=== PATIENT | female | born 1985 | race Caucasian/White ===

== ENCOUNTER 2017-08-28 16:45 | Emergency (ER) | payer MEDICAID ==
[2017-08-28] MEDS ORDERED: Cephalexin CAP* 500 MG PO ONE (18:08)
--- NOTE | 2017-08-28 18:25 | ED ---
Tatiana Lundberg Tenzin, scribed for Raymond Rivera MD on 08/28/17 at 1739 . Allergic Reaction/Systemic - HPI Summary HPI Summary: Pt is a 31 years old female presenting to the ED complaining of rashes like blisters on her face with swelling on her face and glands that got worse since this morning. Pt rates the pain at 6/10 in severity. Pt is also complaining of experiencing mild jerks and pain on the end two fingers in her right hand. She notes that the rashes started on her lips few days ago. She reports that she is a recent inpatient at [facility] and she has been there for a week and half ago for opoid. She is allergic to Sulfoamide. Pt also notes that she has recently been started on Zoloft but today she didn't take it. - History of Current Complaint Chief Complaint: EDAllergicReaction Time Seen by Provider: 08/28/17 17:24 Hx Obtained From: Patient Onset/Duration: Started days ago - few days ago., Still Present Severity Currently: Moderate Pain Intensity: 6 Pain Scale Used: 0-10 Numeric Character: Swelling Aggravating Factor(s): Nothing Alleviating Factor(s): Nothing - Allergies/Home Medications Allergies/Adverse Reactions: Allergies Allergy/AdvReac Type Severity Reaction Status Date / Time Sulfa (Sulfonamide Allergy Hives Verified 08/28/17 16:51 Antibiotics) PMH/Surg Hx/FS Hx/Imm Hx Sensory History: Denies: Hx Deafness Opthamlomology History: Denies: Hx Legally Blind Infectious Disease History: No Infectious Disease History: Denies: Traveled Outside the [place] in Last 30 Days - Family History Known Family History: Positive: Other - Pt denies any relevant family history. Review of Systems Positive: Other - skin rashes Positive: Edema - in her glands and face. All Other Systems Reviewed And Are Negative: Yes Physical Exam - Summary Physical Exam Summary: Appearance: The patient is well-nourished in no acute distress and in no acute pain. Skin: Pt has discrete erythematous lesion where some are crusty, some folliculitis on the right cheek and mild swelling on the left jaw line. HEENT: The head is normocephalic and atraumatic. The pupils are equal and reactive. The conjunctivae are clear and without drainage. Nares are patent and without drainage. Mouth reveals moist mucous membranes and the throat is without erythema and exudate. The external ears are intact. The ear canals are patent and without drainage. The tympanic membranes are intact. Neck: the neck is supple with full range of motion and non-tender. There are no carotid bruits. There is no neck vein distension. Respiratory: Chest is non-tender. Lungs are clear to auscultation and breath sounds are symmetrical and equal. Cardiovascular: Heart is regular rate and rhythm. There is no murmur or rub auscultated. There is no peripheral edema and pulses are symmetrical and equal. Abdomen: The abdomen is soft and non-tender. There are normal bowel sounds heard in all four quadrants and there is no organomegaly palpated. Musculoskeletal: There is no back tenderness noted. Extremities are non-tender with full range of motion. There is good capillary refill. There is no peripheral edema or calf tenderness elicited. Neurological: Patient is alert and oriented to person, place and time. The patient has symmetrical motor strength in all four extremities. Cranial nerves are grossly intact. Deep tendon reflexes are symmetrical and equal in all four extremities. Pt also has a mild chronic jerks. Psychiatric: The patient has an appropriate affect and does not exhibit any anxiety or depression. Triage Information Reviewed: Yes Vital Signs On Initial Exam: Initial Vitals Temp Pulse Resp BP Pulse Ox 97.8 F 83 14 100/62 97 08/28/17 16:46 08/28/17 16:46 08/28/17 16:46 08/28/17 16:46 08/28/17 16:46 Vital Signs Reviewed: Yes Diagnostics - Vital Signs Vital Signs Temp Pulse Resp BP Pulse Ox 08/28/17 16:46 97.8 F 83 14 100/62 97 - Laboratory Lab Statement: Any lab studies that have been ordered have been reviewed, and results considered in the medical decision making process. Allergic Reaction Course/Dx - Course Course Of Treatment: Ms. Arellano presented to the emergency department with a one- day history of facial lesions. About a day and a half ago she noticed a painful lesion on her right upper vermilion border. Subsequently she has developed painful erythematous lesions diffusely on her face and some mild facial swelling on the left. On exam she has honey crusted lesions on her face and no lymphadenopathy. This looks like impetigo to me and I will treat it accordingly. She is at [facility] as an inpatient for about the last 10 days and has had her opiates stopped and then started on Suboxone. She is also been started on several other medications including Lamictal. For the last week or so she's had some jerkiness which looks like mild myoclonic activity to me. I don't think this is related to her current problem and refer her back to [facility] physician. - Diagnoses Provider Diagnoses: Impetigo Discharge - Sign-Out/Discharge Documenting (check all that apply): Discharge/Admit/Transfer - Discharge - Discharge Plan Condition: Stable Disposition: HOME Prescriptions: Cephalexin CAP* [Keflex CAP*] 500 mg PO QID #20 cap Mupirocin 2% OINT* [Bactroban 2 % Oint*] 1 applic TOPICAL TID 5 Days #1 tube Patient Education Materials: Impetigo (ED) Referrals: [facility] [Outside] - 3 Days Additional Instructions: Follow up with your [facility] physician in three days. Return to the emergency department for any new or worsening symptoms. - Billing Disposition and Condition Condition: STABLE Disposition: Home The documentation as recorded by the Tatiana posey Tenzin accurately reflects the service I personally performed and the decisions made by me, Raymond Rivera MD.
[2017-08-28 19:24] VITALS: BP 109/68
[2017-08-28] MEDS ORDERED: Mupirocin 2% OINT* TUBE TOPICAL SCH (21:00)
== END 2017-08-28 18:39 | disposition home or self-care (01) ==
LOC: ED 16:45
DX: L01.00 Impetigo, unspecified (principal); Z88.2 Allergy status to sulfonamides
CPT/HCPCS: 99282; A9270-GY

== ENCOUNTER 2017-11-05 10:02 | Emergency (ER) | payer MEDICAID ==
[2017-11-05] MEDS ORDERED: NS 0.9% 1000 ML* 1,000 ML IV ONE (10:29)
--- NOTE | 2017-11-05 10:51 | ED ---
Abdominal Pain/Female - HPI Summary HPI Summary: A 31 y/o female presents to ED c/o constipation and abdominal pain reaching 3/ 10 in severity. As per triage, "pt reports today from [facility] she has not had a bowel movement in 2 weeks. Has been taking PO medications to assist with bowels but not having any success. Pt hx of bulemia and states has been keeping meals down recently. Pt states she is passing some gas. BS in triage are hypoactive". According to the patient, she has not been able to go to the bathroom for the past two-weeks, however, for the past couple days she has been able to pass a very small amount. She noted that she has been taking stool softeners, prune juice, glycerine, along with other remedies to allow her to have a bowel movement, however, nothing has helped. Additionally, she c/o abdominal pain and feels like she put on 7 lbs. Patient has nausea and some vomiting. PMHx of bulimia, opioid addict (previous), mental health disorders, denies appendectomy. She has been clean for the past 4 months with no smoking. Patient noted that staff cannot obtain blood without US. - History of Current Complaint Chief Complaint: EDAbdPain Stated Complaint: CONSTIPATION Time Seen by Provider: 11/05/17 10:14 Hx Obtained From: Patient Onset/Duration: Sudden Onset, Lasting Weeks - 2 weeks., Still Present Timing: Constant Severity Initially: Mild Severity Currently: Mild Pain Intensity: 3 Pain Scale Used: 0-10 Numeric Location: Discrete At: LLQ Radiates: No Aggravating Factor(s): Nothing Alleviating Factor(s): Nothing Associated Signs and Symptoms: Positive: Constipation, Nausea, Vomiting. Negative: Fever Allergies/Adverse Reactions: Allergies Allergy/AdvReac Type Severity Reaction Status Date / Time Sulfa (Sulfonamide Allergy Hives Verified 11/05/17 10:08 Antibiotics) Home Medications: Home Medications Abilify 10 mg pe PO BID 11/05/17 [History Confirmed 11/05/17] Benadryl Allergy 50 mg PO DAILY 11/05/17 [History Confirmed 11/05/17] Haldol TAB* 2 mg PO DAILY 11/05/17 [History Confirmed 11/05/17] Hydroxyzine HCl 50 mg PO DAILY 11/05/17 [History Confirmed 11/05/17] Melatonin 10 mg PO DAILY 11/05/17 [History Confirmed 11/05/17] Seroquel 200 MG 200 mg pe PO DAILY 11/05/17 [History Confirmed 11/05/17] Vitamin B Complex 1 tab PO DAILY 11/05/17 [History Confirmed 11/05/17] cloNIDine TAB* 0.1 mg PO QID PRN 11/05/17 [History Confirmed 11/05/17] PMH/Surg Hx/FS Hx/Imm Hx Endocrine/Hematology History: Denies: Hx Diabetes Cardiovascular History: Denies: Hx Hypertension Sensory History: Denies: Hx Legally Blind, Hx Deafness Opthamlomology History: Denies: Hx Legally Blind Neurological History: Reports: Other Neuro Impairments/Disorders - 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 - Surgical History Surgery Procedure, Year, and Place: 2 caesarean section, tubal ligation. Infectious Disease History: No Infectious Disease History: Denies: Traveled Outside the [place] in Last 30 Days - Family History Known Family History: Positive: Other - Ovarian and cervical cancer. Negative: Hypertension, Diabetes - Social History Alcohol Use: None Substance Use Type: Reports: None Substance Use Comment - Amount & Last Used: former opiates and benzo use, cocaine, MDMA Smoking Status (MU): Former Smoker Review of Systems Negative: Fever Positive: Abdominal Pain, Vomiting, Nausea, Other - POSITIVE: Constipation. All Other Systems Reviewed And Are Negative: Yes Physical Exam - Summary Physical Exam Summary: Appearance: Well appearing, no pain distress Skin: warm, dry, reflects adequate perfusion Head/face: normal Eyes: EOMI, JEFF ENT: normal Neck: supple, non-tender Respiratory: CTA, breath sounds present Cardiovascular: RRR, pulses symmetrical Abdomen: soft, LLQ tenderness Bowel: present Musculoskeletal: normal, strength/ROM intact Neuro: normal, sensory motor intact, A&Ox3 Triage Information Reviewed: Yes Vital Signs On Initial Exam: Initial Vitals Temp Pulse Resp BP Pulse Ox 98.3 F 93 16 114/64 98 11/05/17 10:08 11/05/17 10:08 11/05/17 10:08 11/05/17 10:08 11/05/17 10:08 Vital Signs Reviewed: Yes Diagnostics - Vital Signs Vital Signs Temp Pulse Resp BP Pulse Ox 11/05/17 10:08 98.3 F 93 16 114/64 98 - Laboratory Result Diagrams: 11/05/17 11:35 11/05/17 11:35 Lab Statement: Any lab studies that have been ordered have been reviewed, and results considered in the medical decision making process. - CT CT A/P CT Interpretation Completed By: Radiologist - 1. No CT evidence of pathologic bowel obstruction or acute inflammatory change. 2. A large amount of stool is incidentally noted throughout the length of the not pathologically dilated colon. Please correlate to signs or symptoms of constipation. ED PHYSCIAIN REVIEWED THIS RADIOLOGY REPORT. Re-Evaluation - Re-Evaluation First Eval Re-Evaluation Time: 14:38 Comment: Discussed plan and discharge with patient. Abdominal Pain Fem Course/Dx - Course Course Of Treatment: A 31 y/o female presents to ED c/o constipation and abdominal pain reaching 3/10 in severity. According to the patient, she has not been able to go to the bathroom for the past two-weeks, however, for the past couple days she has been able to pass a very small amount. A CT A/P revealed 1. No CT evidence of pathologic bowel obstruction or acute inflammatory change. 2. A large amount of stool is incidentally noted throughout the length of the not pathologically dilated colon. Please correlate to signs or symptoms of constipation. Blood work and UA was done and all within normal limits. In the ED course, the patient recieved Zofran, Omnipaque and IV fluids. Patient will be discharged with a diagnosis of constipation. Patient will be sent home with prescription to Sodium Phosphate Enema. Patient is to follow up with PCP in 3 days. Patient is agreeable with this plan. - Diagnoses Differential Diagnosis: Positive: Constipation, Diverticulitis, Ovarian Cyst Provider Diagnoses: Constipation Discharge - Sign-Out/Discharge Documenting (check all that apply): Patient Departure - DISCHARGE - Discharge Plan Condition: Stable Disposition: HOME Prescriptions: Sodium Phosphate ADULT ENEMA* [Fleet Enema*] 1 enema AK DAILY PRN #[id number] PRN Reason: Constipation Patient Education Materials: Constipation (ED), Acute Nausea and Vomiting (ED) , Abdominal Pain (ED) Referrals: Saundra Parker MD [Primary Care Provider] - 3 Days Additional Instructions: FOLLOW UP WITH PRIMARY CARE IN 3 DAYS. TAKE MEDICATION PRESCRIBED. RETURN TO ED FOR ANY NEW OR WORSENING SYMPTOMS. - Billing Disposition and Condition Condition: STABLE Disposition: Home - Attestation Statements Document Initiated by Moiz: Yes Documenting Scribe: Alber Juárez Provider For Whom Moiz is Documenting (Include Credential): Viet Gil MD Scribe Attestation: Alber Lundberg, scribed for Viet Gil MD on 11/05/17 at 1507. Scribe Documentation Reviewed: Yes Provider Attestation: The documentation as recorded by the Alber posey accurately reflects the service I personally performed and the decisions made by , Viet Gil MD
[2017-11-05] MEDS ORDERED: Ondansetron INJ* 2 MG/ML VIAL IV ONE ×2 (11:42→12:40)
[2017-11-05 11:43] LABS: ABS Basophils 0.1 10^3/ul (0-0.2); ABS Eosinophils 0.3 10^3/ul (0-0.6); ABS Lymphocytes 2.4 10^3/ul (1.0-4.8); ABS Monocytes 0.4 10^3/ul (0-0.8); ABS Neutrophils 2.2 10^3/ul (1.5-7.7); ABS Nucleated RBC 0 10^3/ul; Hematocrit 34 % (35-47); Hemoglobin 11.4 g/dl (12.0-16.0); Lymphocyte % 44.7 % (25-47); Mean Corpuscular HGB Conc 33 g/dl (31-36); Mean Corpuscular Hemoglobin 29 pg (27-31); Mean Corpuscular Volume 88 fL (80-97); Mean Platelet Volume 7.4 um3 (7.4-10.4); Nucleated Red Blood Cells % 0.1; Platelet Count 222 10^3/ul (150-450); Red Blood Count 3.92 10^6/ul (4.00-5.40); Red Cell Distribution Width 14 % (10.5-15); White Blood Count 5.4 10^3/ul (3.5-10.8)
[2017-11-05 11:53] LABS: Urine Appearance Cloudy; Urine Blood Negative (Negative); Urine Color Yellow; Urine Ketones Negative (Negative); Urine Protein Negative (Negative); Urine Specific Gravity 1.015 (1.010-1.030); Urine Urobilinogen Negative (Negative)
[2017-11-05 12:00] LABS: EGFR Non-African American 91.8 (>60)
[2017-11-05] MEDS ORDERED: Iohexol 300* (CONTRAST) 10 ML SDV IV ONE (12:42)
[2017-11-05] MEDS ORDERED: Ondansetron INJ* 2 MG/ML VIAL ONE (12:42)
--- NOTE | 2017-11-05 14:31 | RAD ---
CLINICAL HISTORY: Abdominal pain with patient reporting no bowel movement x2 weeks COMPARISON: None TECHNIQUE: Contrast enhanced CT examination of the abdomen and pelvis from the lung bases through the initial tuberosities. The patient received mL intravenously prior to imaging.The patient received oral contrast as well prior to imaging. FINDINGS: VISUALIZED LUNG BASES: The visualized lung bases are grossly clear. There is no pleural effusion. ABDOMEN AND PELVIS: The liver, spleen, pancreas and adrenal glands are grossly normal in appearance. The gallbladder is normal. The kidneys are normal in appearance without focal mass, calcification or signs of hydronephrosis. There are contrast has progressed as far as the distal small bowel. The small and large bowel are not distended. The appendix is probably identified in the right lower quadrant with a small focus of gas in the lumen measuring 5 mm (coronal image 37). Incidentally noted is a large amount of stool throughout the length of the colon without pathologic distention. There is no gross retroperitoneal or mesenteric lymphadenopathy. The pelvic viscera is normal in appearance. The abdominal aorta and iliac arteries are normal in course and diameter. There are no sinister bone lesions. IMPRESSION: 1. No CT evidence of pathologic bowel obstruction or acute inflammatory change. 2. A large amount of stool is incidentally noted throughout the length of the not pathologically dilated colon. Please correlate to signs or symptoms of constipation.
[2017-11-05 15:25] VITALS: BP 106/77
== END 2017-11-05 15:23 | disposition home or self-care (01) ==
LOC: ED 10:02
DX: K59.00 Constipation, unspecified (principal); Z86.59 Personal history of other mental and behavioral disorders; Z87.891 Personal history of nicotine dependence; Z88.2 Allergy status to sulfonamides
CPT/HCPCS: 36415; 74177; 80053; 81003; 83690; 84702; 85025; 96361; 96374; 96376; 99283; J2405; Q9967